=== PATIENT | male | born 1995 | race African-American/Black ===

== ENCOUNTER 2016-07-04 20:53 | Emergency (ER) | payer SELFPAY ==
--- NOTE | 2016-07-04 23:29 | RAD ---
RIGHT WRIST THREE VIEWS: Date: 07-04-16 FINDINGS: No fracture was seen. The carpal bones appeared intact and the carpal relation seemed normal. IMPRESSION: No acute findings. POS: HOME
--- NOTE | 2016-07-04 23:30 | RAD ---
RIGHT HAND THREE VIEWS: Date: 07-04-16 FINDINGS: No acute fracture was seen. An old well-healed fracture of the fifth metacarpal is noted. All carpal s bones appear intact. IMPRESSION: No acute bony finding. POS: HOME
== END 2016-07-04 21:55 | disposition home or self-care (01) ==
LOC: BURERS 20:53
DX: S63.501A Unspecified sprain of right wrist, initial encounter (principal); S60.221A Contusion of right hand, initial encounter; F31.9 Bipolar disorder, unspecified; F41.9 Anxiety disorder, unspecified; F17.210 Nicotine dependence, cigarettes, uncomplicated; Z79.899 Other long term (current) drug therapy; W22.8XXA Striking against or struck by other objects, initial encounter

== ENCOUNTER 2017-08-28 18:16 | Emergency (ER) | payer SELFPAY ==
[2017-08-28] MEDS ORDERED: Ibuprofen 200 MG TAB ONE (19:00)
--- NOTE | 2017-08-28 20:52 | RAD ---
LEFT LE08/28/2017 TECHNIQUE: A total of four views are submitted. FINDINGS: No fracture is seen. The tibia and fibula appear intact. The is no sign of joint effusion at the kn ee. IMPRESSION: No significant finding. POS: HOME
--- NOTE | 2017-08-28 20:54 | RAD ---
RIGHT FINGERS THREE VIEWS: 08/28/2017 FINDINGS: Attention is drawn to the fourth finger, which is said to be the injured digit. No fracture or dislo cation is seen there or elsewhere. The hand and wrist appear intact. An old healed fracture of the fifth metacarpal is noted. IMPRESSION: No acute findings. POS: HOME
== END 2017-08-28 19:07 | disposition home or self-care (01) ==
LOC: BURERS 18:16
DX: S43.402A Unspecified sprain of left shoulder joint, initial encounter (principal); S80.12XA Contusion of left lower leg, initial encounter; S60.041A Contusion of right ring finger without damage to nail, initial encounter; F41.9 Anxiety disorder, unspecified; F31.9 Bipolar disorder, unspecified; F17.210 Nicotine dependence, cigarettes, uncomplicated; W18.30XA Fall on same level, unspecified, initial encounter